=== PATIENT | female | born 1995 | race Caucasian/White ===

== ENCOUNTER 2020-10-05 16:02 | Inpatient (IN) | payer BC ==
[2020-10-05] MEDS ORDERED: OXYTOCIN 10 UNIT/ML 1 ML VIAL IM PRN (17:32)
[2020-10-05] MEDS ORDERED: CARBOPROST TROMETHAMINE 250 MCG/ML 1 ML AMP IM PRN (17:32)
[2020-10-05] MEDS ORDERED: METHYLERGONOVINE 0.2 MG/ML 1 ML AMP IM PRN (17:32)
[2020-10-05] MEDS ORDERED: LIDOCAINE 0.5% (PF) 5 MG/ML (50 ML SDV) SQ PRN (17:32)
[2020-10-05] MEDS ORDERED: AMPICILLIN 2,000 MG in SODIUM CHLORIDE 0.9% 100 ML IVPB STA (17:32)
[2020-10-05] MEDS ORDERED: TERBUTALINE 1 MG/ML VIAL SQ PRN (17:32)
[2020-10-05] MEDS ORDERED: BUTORPHANOL 1 MG/ML 1 ML VIAL IV PRN (17:34)
--- NOTE | 2020-10-05 17:40 | P.HPOB ---
History of Present Illness H&P Date: 10/05/20 Chief Complaint: IUP at 39-3/7 weeks, low amniotic fluid index. This is a yo 1 para 0 at 39-3/7 weeks that presents to labor and delivery after routine visit. Patient had an ultrasound for size less than dates EFW noted to be 25th percentile, amniotic fluid index was 8. Patient then underwent nonstress test which was reactive in nature. Patient did not good movement. Patient denies vaginal bleeding or loss of fluid. Patient has been receiving routine care which is been essentially uncomplicated. On bloodwork this patient has a blood type of A+, rubella status immune, RPR nonreactive, hepatitis B surface antigen negative, HIV negative, she did pass her 1 hour gestational diabetes screen, group beta strep is positive Review of Systems Constitutional: Denies chills, Denies fatigue, Denies fever Ears, nose, mouth and throat: Denies headache Cardiovascular: Reports leg edema Respiratory: Denies dyspnea Gastrointestinal: Denies constipation, Denies diarrhea, Denies nausea, Denies vomiting Genitourinary: Reports Past Medical History Past Medical History: No Reported History History of Any Multi-Drug Resistant Organisms: None Reported Past Surgical History: Cholecystectomy Additional Past Surgical History / Comment(s): 2012 Past Anesthesia/Blood Transfusion Reactions: No Reported Reaction Past Psychological History: No Psychological Hx Reported Smoking Status: Never smoker Past Alcohol Use History: None Reported Past Drug Use History: None Reported - Past Family History Father Family Medical History: Cancer Medications and Allergies Allergies Allergy/AdvReac Type Severity Reaction Status Date / Time Sulfa (Sulfonamide Allergy Rash/Hives Verified 10/05/20 16:56 Antibiotics) Exam Osteopathic Statement: *. No significant issues noted on an osteopathic structural exam other than those noted in the History and Physical/Consult. Vital Signs Temp Pulse Resp BP Pulse Ox 10/05/20 16:41 96.7 F L 94 16 118/60 98 Intake and Output 10/05/20 10/05/20 10/05/20 06:59 14:59 22:59 Other: Weight 81.193 kg Targeted physical exam is performed in this date and hospice physician a well-nourished well-developed female in no acute distress, breathing is noted to be nonlabored, heart has regular rate and rhythm, abdomen is gravid and appropriate for gestational age, on cervical exam she is 2/70/-1 station heart tones returned be category 1 and she is not marlena. Assessment and Plan (1) 39 weeks gestation of Current Visit: Yes Status: Acute Code(s): Z3A.39 - 39 WEEKS GESTATION OF SNOMED Code(s): 10600736 (2) Low amniotic fluid Current Visit: Yes Status: Acute Code(s): O41.00X0 - OLIGOHYDRAMNIOS, UNSP TRIMESTER, NOT APPLICABLE OR UNSP SNOMED Code(s): 69380817 (3) Positive GBS test Current Visit: Yes Status: Acute Code(s): B95.1 - STREPTOCOCCUS, GROUP B, CAUSING DISEASES CLASSD [facility] SNOMED Code(s): 226321377 Plan: 1 para 0 at 39 3/7 weeks that presents to labor and delivery for induction of labor secondary to borderline low amniotic fluid index. Patient is counseled on Pitocin induction of labor and states understanding. Patient is offered Stadol and epidural she will consider at the time.
[2020-10-05 17:43] LABS: Basophils % (A) 0 %; Eosinophils # (A) 0.2 k/uL (0-0.7); Eosinophils % (A) 2 %; HCT 36.7 % (34.0-46.0); HGB 13.1 gm/dL (11.4-16.0); Lymphocytes # (A) 1.6 k/uL (1.0-4.8); Lymphocytes % (A) 17 %; MCH 31.9 pg (25.0-35.0); MCHC 35.8 g/dL (31.0-37.0); MCV 89.1 fL (80.0-100.0); Mean Platelet Volume 7.7; Monocytes # (A) 0.5 k/uL (0-1.0); Monocytes % (A) 5 %; Neutrophils % (A) 75 %; Platelet Count 198 k/uL (150-450); RBC 4.12 m/uL (3.80-5.40); WBC 9.4 k/uL (3.8-10.6)
[2020-10-05] MEDS ORDERED: OXYTOCIN 30 UNITS/500 ML NS 30 UNIT in SALINE 1 500ML.BAG IV SCH ×2 (17:45→21:45)
[2020-10-05] MEDS: LACTATED RINGERS 1,000 ML IV SCH ×2 (17:45→21:34)
[2020-10-05] MEDS ORDERED: CITRIC ACID-SODIUM CITRATE 15 ML CUP PO ONE (20:50)
[2020-10-05] MEDS ORDERED: ONDANSETRON 4 MG/2 ML VIAL ONE (20:53)
[2020-10-05] MEDS ORDERED: MORPHINE SULFATE (PF) 0.3 MG/0.3 ML SYR ONE (20:53)
[2020-10-05] MEDS ORDERED: KETOROLAC 15 MG/ML 1 ML VIAL ONE (20:53)
[2020-10-05] MEDS ORDERED: DEXAMETHASONE SOD PHOSPHATE 10 MG/ML 1 ML VIAL ONE (20:53)
[2020-10-05] MEDS ORDERED: METOCLOPRAMIDE 5 MG/ML 2 ML VIAL IVP PRN (21:36)
[2020-10-05] MEDS ORDERED: SIMETHICONE 80 MG CHEWABLE PO PRN (21:36)
[2020-10-05] MEDS ORDERED: diphenhydrAMINE 50 MG/ML 1 ML VIAL IVP PRN ×2 (21:36)
[2020-10-05] MEDS ORDERED: ZOLPIDEM 5 MG TAB PO PRN (21:36)
[2020-10-05] MEDS ORDERED: NALOXONE 0.4 MG/ML 1 ML VIAL IV PRN (21:36)
[2020-10-05] MEDS ORDERED: diphenhydrAMINE 25 MG CAP PO PRN (21:36)
[2020-10-05] MEDS ORDERED: ONDANSETRON 4 MG/2 ML VIAL IVP PRN (21:36)
[2020-10-05] MEDS ORDERED: diphenhydrAMINE 50 MG CAP PO PRN (21:36)
--- NOTE | 2020-10-05 21:43 | P.OP ---
Date of Procedure: 10/05/20 Preoperative Diagnosis: IUP at 39-3/7 weeks, nonreassuring heart tones remote from delivery Postoperative Diagnosis: Same Procedure(s) Performed: Primary low transverse section Anesthesia: spinal Surgeon: Rosa Vicente Review Manager #1: Maryann Turner Estimated Blood Loss (ml): 316 IV fluids (ml): 1,000 Urine output (ml): 200 Pathology: other (Placenta) Condition: stable Disposition: observation Indications for Procedure: 35-year-old at 39-3/7 weeks that presented to labor and delivery for induction of labor earlier this evening. Patient was seen in the office for routine visit ultrasound was done for size less than dates. Ultrasound revealing estimated weight of 7 lbs. 1 oz. 25th percentile of note low amniotic fluid index was noted of 8 cm. NST was preformed in the office and noted be category 1 patient was sent to the hospital for induction of labor secondary to low amniotic fluid index. Patient was admitted Pitocin was begun. Patient did have an initial deceleration for 4 minutes that return to baseline with category 1 heart tones soon afterwards. Patient subsequently 2 hours later had an additional deceleration to the 70s for 4 minutes. heart tones did return to baseline of 120s but late decelerations had begun. Decision was made to take the patient for primary secondary to nonreassuring heart tones remote from delivery. Operative Findings: Normal uterus tubes and ovaries were appreciated. Viable male infant delivered at 2108, weight of 6 lbs. 1 oz. and Apgars of 8 and 9 at one and 5 minutes respectively. Description of Procedure: Patient was taken back to the operating suite where spinal anesthesia was found be adequate by the anesthesia department. She was then prepped and draped in the normal sterile fashion in the dorsal supine position. A Pfannenstiel skin incision was made the scalpel and carried through the underlying layer of fascia. The fascia was then incised in the midline and the incision was extended laterally. The superior aspect of the fascial incision was then grasped raman clamps, elevated and underlying rectus muscles dissected off sharply. Attention was then turned the inferior aspect of the fascial incision which was grasped raman clamps, elevated and underlying rectus muscles dissected off sharply once again. The rectus muscles were in the midline the peritoneum was identified and entered. The bladder blade was then introduced into the abdominal cavity. The vesicouterine peritoneum was identified and a bl adder flap was created using sharp and blunt dissection. Hysterotomy incision was then made with the scalpel and the was delivered in a vertex presentation the umbo cord was doubly clamped and cut and the infant was handed off to awaiting RN spontaneous cry was noted at . The placenta was then delivered manually and the uterus cleared of all clots and debris. Uterus was delivered from the abdomen. Hysterotomy incision was then closed with 0 Vicryl in a running locked fashion a second imbricating suture was performed. The pelvis was then closely irrigated the hysterotomy incision was found to be hemostatic and the uterus was returned the abdomen. The gutters were cleared of all clots and debris. The hysterotomy inspected incision was inspected found to be hemostatic Surgicel was placed over the incision. The rectus muscles were loosely reapproximated. The fascia was closed with 0 Vicryl in a running fashion from one lateral edge the midline and the other lateral edge the midline. Subcu tissue was then irrigated found to be hemostatic and closed with 3-0 Vicryl in a running fashion. The skin was then closed with 4-0 Vicryl in a subcuticular fashion. Steri-Strips and sterile dressings were applied as needed. All counts were noted to be correct 2. Patient and tolerated delivery well and are resting comfortably.
[2020-10-05] MEDS ORDERED: AMPICILLIN 1,000 MG in SODIUM CHLORIDE 0.9% 50 ML IVPB SCH (22:00)
[2020-10-05] MEDS: ACETAMINOPHEN IV (For NPO) 1,000 MG in EMPTY BAG 1 BAG IVPB SCH (22:28)
[2020-10-06] MEDS: ACETAMINOPHEN TAB 500 MG TAB PO SCH ×3 (02:45→20:14)
[2020-10-06] MEDS: LACTATED RINGERS 1,000 ML IV SCH ×2 (02:46→05:13)
[2020-10-06] MEDS: IBUPROFEN 600 MG TAB PO SCH ×3 (04:53→23:45)
[2020-10-06] MEDS: IBUPROFEN IV 800 MG in SODIUM CHLORIDE 0.9% 250 ML IV SCH (05:13)
[2020-10-06 06:14] LABS: Basophils % (A) 0 %; Eosinophils % (A) 0 %; HCT 31.4 % (34.0-46.0); HGB 11.7 gm/dL (11.4-16.0); Lymphocytes % (A) 7 %; MCH 34.1 pg (25.0-35.0); MCHC 37.1 g/dL (31.0-37.0); MCV 91.8 fL (80.0-100.0); Mean Platelet Volume 7.4; Monocytes # (A) 0.4 k/uL (0-1.0); Monocytes % (A) 3 %; Neutrophils # (A) 12.9 k/uL (1.3-7.7); Neutrophils % (A) 90 %; Platelet Count 165 k/uL (150-450); RBC 3.43 m/uL (3.80-5.40); RDW 12.8 % (11.5-15.5); WBC 14.4 k/uL (3.8-10.6)
[2020-10-06] MEDS: SENNOSIDES-DOCUSATE SODIUM 1 EACH TAB PO SCH ×2 (07:47→20:13)
--- NOTE | 2020-10-06 07:51 | P.PN ---
Progress Note - Text Progress Note Date: 10/06/20 (691) Anesthesia Postop day 1 Subjective: Status Post section with Duramorph. Patient seen and examined. Doing well without complaint. VAS 3 out of 10. No nausea or vomiting. Mild pruritus tolerable. All resolved this morning. Afebrile. Gross lower extremity strength intact. . Without apparent anesthetic complications. Objective: Vital signs reviewed Heart: Regular Rate Lungs: Good chest excursion Abdomen: Appears nondistended Assessment: Status post with Duramorph postop day 1 Plan: Continue current care with your medical management.
--- NOTE | 2020-10-06 08:33 | P.PNOBGPC ---
Subjective - Subjective Principal diagnosis: POD 1 LTCS NRFHTs Interval history: Patient did well overnight. She is ambulate without difficulty, Kline was discontinued and we are awaiting a spontaneous void. Her lochia is minimal. She is breast-feeding without difficulty. She states her pain is well- controlled. Patient reports: Reports appetite normal, Reports voiding normally, Reports pain well controlled, Reports ambulating normally : doing well Objective - Vital Signs Latest vital signs: Vital Signs Temp Pulse Resp BP Pulse Ox 10/06/20 08:00 97.5 F L 77 16 111/61 99 10/06/20 03:20 97.7 F 86 16 109/70 98 10/06/20 00:04 96.6 F L 78 16 99/55 98 10/05/20 23:49 90 16 107/63 99 10/05/20 23:16 83 16 120/57 99 10/05/20 22:34 97.3 F L 95 16 130/55 98 10/05/20 22:19 77 16 80/51 98 10/05/20 22:04 72 16 95/50 98 10/05/20 21:49 79 16 85/59 98 10/05/20 21:33 97.9 F 90 16 91/53 100 10/05/20 16:41 96.7 F L 94 16 118/60 98 Intake and Output 10/05/20 10/06/20 10/06/20 22:59 06:59 14:59 Output Total 300 1332 Balance -300 -1332 Output: Urine 300 700 Uretheral (Kline) 300 Estimated Blood Loss 632 Other: Voiding Method Indwelling Catheter Indwelling Catheter # Voids 1 1 Weight 81.193 kg - Exam Extremities: Present: normal, edema Abdomen: Present: normal appearance Incision: Present: normal, intact Uterus: Present: normal, firm - Labs Labs: Abnormal Lab Results - Last 24 Hours (Table) 10/06/20 Range/Units 05:40 WBC 14.4 H (3.8-10.6) k/uL RBC 3.43 L (3.80-5.40) m/uL Hct 31.4 L (34.0-46.0) % MCHC 37.1 H (31.0-37.0) g/dL Neutrophils # 12.9 H (1.3-7.7) k/uL Assessment and Plan (1) 39 weeks gestation of Current Visit: Yes Status: Acute Code(s): Z3A.39 - 39 WEEKS GESTATION OF SNOMED Code(s): 13665946 (2) Low amniotic fluid Current Visit: Yes Status: Acute Code(s): O41.00X0 - OLIGOHYDRAMNIOS, UNSP TRIMESTER, NOT APPLICABLE OR UNSP SNOMED Code(s): 08238609 (3) Positive GBS test Current Visit: Yes Status: Acute Code(s): B95.1 - STREPTOCOCCUS, GROUP B, CAUSING DISEASES CLASSD [facility] SNOMED Code(s): 787142140 (4) S/P section Current Visit: Yes Status: Acute Code(s): Z98.891 - HISTORY OF UTERINE SCAR FROM PREVIOUS SURGERY SNOMED Code(s): 074613495 (5) Non-reassuring heart rate with late deceleration Current Visit: Yes Status: Acute Code(s): O36.8390 - MATERN CARE FOR ABNLT FETL HRT RATE OR RHYM, UNSP TRI, UNSP SNOMED Code(s): 282678871 Plan: 25-year-old G1 now P1 status post primary performed for nonreassuring heart tones. Patient is doing well postoperatively. Awaiting spontaneous void. Encourage increased ambulation today and anticipate discharge home tomorrow.
[2020-10-06] MEDS: ACETAMINOPHEN IV (For NPO) 1,000 MG in EMPTY BAG 1 BAG IVPB SCH (08:43)
[2020-10-06 20:10] VITALS: RESP 16
[2020-10-07 00:04] VITALS: PULSE 95
[2020-10-07] MEDS: ACETAMINOPHEN TAB 500 MG TAB PO SCH ×2 (03:25→09:08)
[2020-10-07] MEDS: IBUPROFEN IV 800 MG in SODIUM CHLORIDE 0.9% 250 ML IV SCH (04:44)
[2020-10-07] MEDS: LACTATED RINGERS 1,000 ML IV SCH ×2 (04:45)
[2020-10-07] MEDS: IBUPROFEN 600 MG TAB PO SCH ×2 (04:46→06:09)
[2020-10-07] MEDS: SENNOSIDES-DOCUSATE SODIUM 1 EACH TAB PO SCH (07:48)
--- NOTE | 2020-10-07 09:04 | P.DS ---
Providers Date of admission: 10/05/20 16:21 Expected date of discharge: 10/07/20 Attending physician: Rosa Vicente Primary care physician: Jose Eduardo Tirado MD - Discharge Diagnosis(es) (1) 39 weeks gestation of Current Visit: Yes Status: Acute (2) Low amniotic fluid Current Visit: Yes Status: Acute (3) Positive GBS test Current Visit: Yes Status: Acute (4) S/P section Current Visit: Yes Status: Acute (5) Non-reassuring heart rate with late deceleration Current Visit: Yes Status: Acute Hospital Course: This is a 25-year-old 1 now para 1 that presented to labor and delivery for induction of labor secondary to low amniotic fluid index an estimated weight less than 25th percentile at her routine visit in the office. Patient was noted to be 39-3/7 weeks with an estimated due date of 10/09. Patient was noting good movement had reassuring testing. NST in the office was noted to be reactive are category 1. Patient was admitted and induction of labor was begun with Pitocin per hospital protocol. Patient was noted to have a deceleration for 4 minutes with good return to baseline upon ambulation. Patient progressed and had another deceleration down to 70 544 minutes. Decision at that point was made to proceed with primary secondary to nonreassuring status. Patient was taken back to the operating suite liveborn male was delivered at 2108, weight of 6 lbs. 1 oz. with Apgars of 8 and 9 at one and 5 minutes respect daily. Patient's course has been uneventful. On this day #2 she is ambulating and voiding without difficulty. She is breast-feeding without difficulty. She states her pain is well-controlled with oral pain medication. She is tolerating a regular diet without nausea or vomiting and she states her lochia is minimal. Patient Condition at Discharge: Good Plan - Discharge Summary Follow up Appointment(s)/Referral(s): Rosa Vicente DO [Doctor of Osteopathic Medicine] - 2 Weeks Patient Instructions/Handouts: (DC), (GEN) Discharge Disposition: HOME SELF-CARE
[2020-10-07 09:36] VITALS: BP 95/60; TEMP 97.8
== END 2020-10-07 10:15 | disposition home or self-care (01) | DRG 788 ==
LOC: 4FBP 16:21
PROVIDERS: ADMIT Obstetrics & Gynecology Obstetrics; ATTEND Obstetrics & Gynecology Obstetrics
PROC: 10D00Z1 Extraction of Products of Conception, Low, Open Approach (ICD-10-PCS; principal; 2020-10-05 21:00)
DX: O41.03X0 Oligohydramnios, third trimester, not applicable or unspecified (principal); O76 Abnormality in fetal heart rate and rhythm complicating labor and delivery; L29.9 Pruritus, unspecified; O99.824 Streptococcus B carrier state complicating childbirth; Z37.0 Single live birth; Z3A.39 39 weeks gestation of pregnancy
CPT/HCPCS: 85025; 86850; 86900; 86901; 88307

== ENCOUNTER → 2021-12-12 | Outpatient (CLI) | payer BC ==
--- NOTE | 2021-12-12 14:00 | MR ---
EXAMINATION TYPE: MR brain wo/w con DATE OF EXAM: 12/12/2021 COMPARISON: None HISTORY: PARESTHESIA OF TONGUE TECHNIQUE: Multiplanar, multisequence images of the brain and brainstem is performed without and with IV contras t, utilizing 6 mL intravenous Gadavist . FINDINGS: Diffusion weighted images demonstrate no evidence of a recent infarct or other diffusion ab normality. There a few scattered focal subcutaneous 5 mm areas of abnormal signal within the right f rontal and parietal white matter. 2 small to characterize. Area of abnormal signal on FLAIR sequences within the right kush is most likely artifactual. The ventricular system and cisternal spaces are n ormal in size and appearance. The brain volume is age appropriate. Midline structures demonstrate normal morphology. The craniocervical junction appears within normal limits. Post contrast images demonstrate no abnormal enhancement. The dural venous sinuses appear pa tent. The visualized sinuses are clear and the globes are intact. IMPRESSION: Minimal nonspecific white matter changes can be seen with migraine headaches, hypertension. Demyelina ting process and remote microvascular ischemia not entirely excluded correlate clinically.
== END | disposition home or self-care (01) ==
LOC: RADMRIMAIN 11:45
PROVIDERS: ATTEND Internal Medicine
DX: R44.8 Other symptoms and signs involving general sensations and perceptions (principal); G93.89 Other specified disorders of brain
CPT/HCPCS: 70553; A9585

== ENCOUNTER 2022-09-21 05:12 | Outpatient (CLI) | payer BC ==
[2022-09-21 05:46] LABS: Appearance,Urine Clear (Clear); Bilirubin,Urine Negative (Negative); Blood,Urine Negative (Negative); Color,Urine Light Yellow; Glucose,Urine (UA) Negative (Negative); Ketones,Urine Negative (Negative); Leukocyte Esterase,Urine Negative (Negative); Nitrite,Urine Negative (Negative); PH, Urine 6.5 (5.0-8.0); Protein,Urine Negative (Negative); Specific Gravity,Urine 1.009 (1.001-1.035); Urobilinogen,Urine <2.0 mg/dL (<2.0)
[2022-09-21 06:19] VITALS: BP 114/52; PULSE 86; RESP 16; TEMP 97.2
--- NOTE | 2022-10-02 14:09 | P.MSEPDOC ---
Presenting Problems - Arrival Data Date of Arrival on Unit: 09/21/22 Time of Arrival on Unit: 05:12 Mode of Transport: Ambulatory - Complaint OB-Reason for Admission/Chief Complaint: Pain Medical History - Information : 3 Para: 1 Term: 1 Abortions: Spontaneous or Elective: 1 Number of Living Children: 1 - Gestational Age Gestational Age by ASHWINI (wks/days): 35 Weeks and 6 Days - History Complications: GBS+ Review of Systems - Review of Systems Constitutional: No problems Breast: No problems ENT: No problems Cardiovascular: No problems Respiratory: No problems Gastrointestinal: No problems Genitourinary: No problems Musculoskeletal: No problems Neurological: No problems Skin: No problems Vital Signs - Temperature Temperature: 97.2 F Temperature Source: Temporal Artery Scan - Pulse Pulse Oximetery Pulse Rate: 86 Pulse Assessment Method: Auscultation - Respirations Respiratory Rate: 16 Oxygen Delivery Method: Room Air O2 Sat by Pulse Oximetry: 98 - Blood Pressure Right Arm Blood Pressure: 114/52 Blood Pressure Mean: 72 Blood Pressure Source: Automatic Cuff Medical Screen Scoring - Cervical Exam Dilation (cm): 0 Membranes: Intact - Uterine Contractions Frequency From (mins): 2 Frequency To (mins): 5 Duration From (seconds): 40 Duration To (seconds): 60 Intensity: Absent - Assessment - Baby A Heart Rate - NICHD Category: Category I (Normal) NST: Reactive Physician Notification - Physician Notified Physician Notified Date: 09/21/22 Physician Notified Time: 00:00 Physician: Swathi Matos New Order Received: Yes - Notification Comment Comment: RN spoke Dr. Matos via telephone Dr. Matos aware of cervical exam,. urine labs, Cat1, contraction pattern and patient is not feeling contractions.Dr. Matos is discharging patient to keep appt with Dr. Vicente this. . Patient aware of sign of when to call OB or return to triage. Patient. ambulated out of triage with significant other. Maternal Triage Index - Urgent/Priority 2 Urgent Priority 2: Yes Provider Notified: Swathi Matos Provider Notified Time: 05:52 Criteria Met for Priority 2: pt c/o of cramping and back pain that started about 0150. Disposition - Disposition OB Disposition: Admit Discharge Date: 09/21/22 Discharge Time: 05:56 I agree with the RN Medical Screening Exam: Yes Physician's MSE Comment: I have neither seen nor examined the patient Case reviewed; plan agreed upon as documented in EMR&OBIX.: Yes Diagnosis: RELATED CONDITIONS, UNSPECIFIED, THIRD TRIMESTER
== END 2022-09-21 05:56 | disposition home or self-care (01) ==
LOC: FBPOP 05:12
PROVIDERS: ATTEND Obstetrics & Gynecology
DX: O26.893 Other specified pregnancy related conditions, third trimester (principal); Z3A.35 35 weeks gestation of pregnancy; A49.1 Streptococcal infection, unspecified site; Z88.2 Allergy status to sulfonamides
CPT/HCPCS: 59025; 81003; 99213

== ENCOUNTER 2022-10-16 09:00 | Outpatient (CLI) | payer BC ==
[2022-10-16 10:38] VITALS: BP 118/71; PULSE 75; RESP 16; TEMP 97.3
--- NOTE | 2022-11-08 19:12 | P.MSEPDOC ---
Presenting Problems - Arrival Data Date of Arrival on Unit: 10/16/22 Time of Arrival on Unit: 09:00 Mode of Transport: Ambulatory - Complaint OB-Reason for Admission/Chief Complaint: Vaginal Bleeding Comment: pt presents to triage for some vaginal bleedin when wiping with toilet paper this am Medical History - Information : 3 Para: 1 Term: 1 : 0 Abortions: Spontaneous or Elective: 1 Number of Living Children: 1 - Gestational Age Gestational Age by ASHWINI (wks/days): 39 Weeks and 3 Days - History Complications: Prior Comment: pt wants to Review of Systems - Review of Systems Constitutional: No problems Breast: No problems ENT: No problems Cardiovascular: No problems Respiratory: No problems Gastrointestinal: No problems Genitourinary: No problems Musculoskeletal: No problems Neurological: No problems Skin: No problems Vital Signs - Temperature Temperature: 97.3 F Temperature Source: Temporal Artery Scan - Pulse Right Brachial Pulse Rate: 75 Pulse Assessment Method: Automatic Cuff - Respirations Respiratory Rate: 16 Oxygen Delivery Method: Room Air O2 Sat by Pulse Oximetry: 98 - Blood Pressure Right Arm Blood Pressure: 118/71 Blood Pressure Mean: 86 Blood Pressure Source: Automatic Cuff Medical Screen Scoring - Cervical Exam Dilation (cm): 1 Effacement (%): 50 Station: -3 Membranes: Intact - Uterine Contractions Intensity: Mild Resting: Soft to palpation - Assessment - Baby A Baseline FHR: 120 Heart Rate - NICHD Category: Category I (Normal) NST: Reactive Physician Notification - Physician Notified Physician Notified Date: 10/16/22 Physician Notified Time: 09:57 Physician: Rosa Vicente New Order Received: Yes - Notification Comment Comment: pt wants to , cervical exam /-3, reactive nst, irregular contrations, discharged home, next appt in office 10/18 Maternal Triage Index - Maternal Triage Index Presenting for scheduled procedure w/no complaint: No - Stat/Priority 1 Stat Priority 1: No - Urgent/Priority 2 Urgent Priority 2: No - Prompt/Priority 3 Prompt Priority 3: Yes Criteria Met for Priority 3: pt presents to triage for some vaginal bleedin when wiping with toilet paper this am Disposition - Disposition OB Disposition: Triage, Discharge to home, Written follow up instructions reviewed Discharge Date: 10/16/22 Discharge Time: 10:15 I agree with the RN Medical Screening Exam: Yes Case reviewed; plan agreed upon as documented in EMR&OBIX.: Yes Diagnosis: RELATED CONDITIONS, UNSPECIFIED, THIRD TRIMESTER
== END 2022-10-16 10:15 | disposition home or self-care (01) ==
LOC: FBPOP 09:00
PROVIDERS: ATTEND Obstetrics & Gynecology Obstetrics
DX: O26.893 Other specified pregnancy related conditions, third trimester (principal); Z3A.39 39 weeks gestation of pregnancy; O34.219 Maternal care for unspecified type scar from previous cesarean delivery; N85.8 Other specified noninflammatory disorders of uterus; Z88.2 Allergy status to sulfonamides
CPT/HCPCS: 59025; 99213

== ENCOUNTER 2022-10-18 16:12 | Inpatient (IN) | payer BC ==
[2022-10-18] MEDS ORDERED: METHYLERGONOVINE 0.2 MG/ML 1 ML AMP IM PRN (16:25)
[2022-10-18] MEDS ORDERED: CITRIC ACID-SODIUM CITRATE 15 ML CUP PO ONE (16:25)
[2022-10-18] MEDS ORDERED: TRANEXAMIC ACID IN NACL,ISO-OS 1,000 MG in EMPTY BAG 1 BAG IV PRN (16:25)
[2022-10-18] MEDS ORDERED: OXYTOCIN 10 UNIT/ML 1 ML VIAL IM PRN (16:25)
[2022-10-18] MEDS ORDERED: miSOPROStoL 200 MCG TAB PO PRN (16:25)
[2022-10-18] MEDS ORDERED: CARBOPROST TROMETHAMINE 250 MCG/ML 1 ML AMP IM PRN (16:25)
[2022-10-18] MEDS ORDERED: OXYTOCIN 30 UNITS/500 ML NS 30 UNIT in SALINE 1 500ML.BAG IV SCH (16:30)
[2022-10-18] MEDS: LACTATED RINGERS 1,000 ML IV SCH ×3 (16:37→20:30)
[2022-10-18 16:52] LABS: Basophils % (A) 0 %; Eosinophils # (A) 0.2 k/uL (0-0.7); Eosinophils % (A) 2 %; HCT 35.4 % (34.0-46.0); Lymphocytes % (A) 20 %; MCH 28.2 pg (25.0-35.0); Mean Platelet Volume 9.2; Monocytes # (A) 0.6 k/uL (0-1.0); Monocytes % (A) 6 %; Neutrophils # (A) 7.1 k/uL (1.3-7.7); Neutrophils % (A) 71 %; Platelet Count 190 k/uL (150-450); RBC 4.26 m/uL (3.80-5.40); RDW 13.1 % (11.5-15.5)
[2022-10-18] MEDS ORDERED: ONDANSETRON 4 MG/2 ML VIAL ONE (18:35)
[2022-10-18] MEDS ORDERED: MORPHINE SULFATE (PF) 0.3 MG/0.3 ML SYR ONE (18:35)
[2022-10-18] MEDS ORDERED: DEXAMETHASONE SOD PHOSPHATE 4 MG/ML 1 ML VIAL ONE (18:35)
[2022-10-18] MEDS ORDERED: HYDROmorphone (PF) 1 MG/ML ONE (18:35)
[2022-10-18] MEDS ORDERED: KETOROLAC 15 MG/ML 1 ML VIAL ONE (18:35)
[2022-10-18] MEDS ORDERED: PHENYLEPHRINE-0.9% NACL SYG 1,000 MCG/10 ML SYRINGE ONE (18:35)
[2022-10-18] MEDS ORDERED: OXYTOCIN 30 UNITS/500 ML NS BAG IV ONE (18:35)
[2022-10-18] MEDS ORDERED: OXYTOCIN 10 UNIT/ML 1 ML VIAL ONE (18:35)
[2022-10-18] MEDS ORDERED: NALOXONE 0.4 MG/ML 1 ML VIAL IV PRN ×2 (19:21→19:23)
[2022-10-18] MEDS ORDERED: METOCLOPRAMIDE 5 MG/ML 2 ML VIAL IVP PRN (19:21)
[2022-10-18] MEDS ORDERED: diphenhydrAMINE 50 MG CAP PO PRN (19:21)
[2022-10-18] MEDS ORDERED: ZOLPIDEM 5 MG TAB PO PRN (19:21)
[2022-10-18] MEDS ORDERED: ONDANSETRON 4 MG/2 ML VIAL IVP PRN ×2 (19:21→19:23)
[2022-10-18] MEDS ORDERED: diphenhydrAMINE 25 MG CAP PO PRN (19:21)
[2022-10-18] MEDS ORDERED: diphenhydrAMINE 50 MG/ML 1 ML VIAL IVP PRN ×3 (19:21→19:23)
[2022-10-18] MEDS ORDERED: MORPHINE SULFATE 2 MG/ML SYRINGE IVP PRN (19:23)
--- NOTE | 2022-10-18 19:30 | P.OP ---
Date of Procedure: 10/18/22 Preoperative Diagnosis: IUP at 39 and 5, history of 1, low amniotic fluid index Postoperative Diagnosis: Same Procedure(s) Performed: Repeat section Anesthesia: spinal Surgeon: Rosa Vicente Legal Paraprofessional #1: Sascha Lozano Estimated Blood Loss (ml): 523 IV fluids (ml): 800 Urine output (ml): 300 Pathology: other (Placenta) Condition: stable Disposition: observation Indications for Procedure: 27-year-old 011 that was seen in the office today for routine visit. Ultrasound was performed for estimated weight and amniotic fluid index. Patient has a history of a primary for nonreassuring tones and low amniotic fluid index. Patient had an CELINA noted to be low at 9. Patient was counseled on delivery options. On cervical exam her cervix is noted to be unfavorable. Patient elected repeat section. Operative Findings: Viable female delivered at 1856, weight of 5 lbs. 12 oz., Apgars of 9 and 9 at one and 5 minutes respectively. Of note the lower uterine segment was noted to be significantly thin on hysterotomy incision. Thin meconium-stained fluid was appreciated. Normal ovaries bilaterally. Description of Procedure: Patient was taken back to the operating suite where spinal anesthesia was found be adequate. She was prepped and draped in the normal sterile fashion in the dorsal lithotomy position. A Pfannenstiel skin incision was made with the scalpel and carried through the underlying layer of fascia. The fascia was incised the midline and extended laterally. The superior aspect of fascial incision was then grasped raman clamps, elevated and underlying rectus muscles dissected off sharply. The inferior aspect of the fascial incision was then grasped raman clamps, elevated and the underlying rectus muscles dissected off sharply once again. The rectus muscles were then in the midline the peritoneum was identified and entered. This incision was then extended superiorly and inferiorly with good visualization the bladder. The bladder blade was then inserted and the vesicouterine peritoneum was identified. A bladder flap was then created using sharp and blunt dissection. The bladder blade was then reinserted into the pelvis. A scalpel was used to perform hysterotomy incision and thin meconium-stained fluid was appreciated. The lower uterine segment was noted to be thin in nature. The infant was encountered presentation and delivered without difficulty. The umbilical cord was doubly clamped and cut, and the was handed to awaiting RN. A spontaneous cry was noted at . The placenta was delivered manually and the uterus was exteriorized and cleared of all clots and debris. Uterine incision was closed with 0 Vicryl in a running locked fashion. A second imbricating suture was performed. The hysterotomy incision was inspected and found to be hemostatic. The uterus was returned the abdomen. The gutters were cleared of all clots and debris. The hysterotomy incision was inspected and hemostasis was appreciated. The peritoneum was then loosely reapproximated, the rectus muscles were inspected and any points of bleeding were made hemostatic with the Bovie. The fascia was then closed with 0 Vicryl in a running fashion from one lateral edge the midline and the other lateral edge the midline. Subcu tissue was irrigated and any points of bleeding were made hemostatic with the Bovie. The subcu tissue was then closed with 3-0 Vicryl in a running fashion. Skin was then closed with 4-0 Vicryl in a subcuticular fashion. Steri-Strips and sterile dressings were applied. All counts were correct 2 at the end of the procedure patient and infant tolerated delivery well and are resting comfortably.
--- NOTE | 2022-10-18 19:31 | P.HPOB ---
History of Present Illness H&P Date: 10/18/22 Chief Complaint: IUP at 39-5/7 weeks, low CELINA, history of 1 This is a 27-year-old at 39-5/7 weeks that presents to labor and delivery after being seen for a routine visit. Patient had an ultrasound giving her upcoming due date in mid fluid index was noted to be slightly low at 9. Estimated weight was 24th percentile. Patient has noted good movement. Patient had a reassuring category 1 NST. Patient has noted good movement, denies contractions. Patient has been receiving routine care with myself that has been essentially uncomplicated. Patient has a prior history of a primary for nonreassuring heart tones and low amniotic fluid index. Patient did desire TOLAC until today when she requested repeat section. Patient's cervix was found to be unfavorable after questions were answered patient agreed with repeat section. Review of Systems Constitutional: Denies chills, Denies fatigue, Denies fever Ears, nose, mouth and throat: Denies headache Cardiovascular: Reports leg edema Respiratory: Denies dyspnea Gastrointestinal: Denies constipation, Denies diarrhea, Denies nausea, Denies vomiting Genitourinary: Reports Past Medical History Past Medical History: No Reported History History of Any Multi-Drug Resistant Organisms: None Reported Past Surgical History: Cholecystectomy Additional Past Surgical History / Comment(s): 2012 Past Anesthesia/Blood Transfusion Reactions: No Reported Reaction Smoking Status: Never smoker - Past Family History Father Family Medical History: Cancer Medications and Allergies Home Medications Medication Instructions Recorded Confirmed Type busPIRone HCl [Buspar] 1 tab PO DAILY 09/21/22 10/16/22 History busPIRone HCl [Buspar] 1 tab PO HS 09/21/22 10/16/22 History Aspirin [Children's Aspirin] 81 mg PO DAILY 10/16/22 10/16/22 History Vit No.179/Iron/Folic 1 tab PO DAILY 10/16/22 10/16/22 History [ Tablet] Allergies Allergy/AdvReac Type Severity Reaction Status Date / Time Sulfa (Sulfonamide Allergy Rash/Hives Verified 10/16/22 09:19 Antibiotics) Exam Osteopathic Statement: *. No significant issues noted on an osteopathic structural exam other than those noted in the History and Physical/Consult. Targeted physical exam is performed in this date and transferrer a well-nourished well-developed female in no acute distress, breathing is nonlabored, heart has a regular rate and rhythm, abdomen is gravid for gestational age, heart tones are noted to be category 1 from an NST in the office, on cervical exam she is 1/50/-2 firm and posterior. Vertex presentation Assessment and Plan (1) Term Current Visit: Yes Status: Acute Code(s): Z34.90 - ENCNTR FOR SUPRVSN OF NORMAL , UNSP, UNSP TRIMESTER SNOMED Code(s): 03875946 (2) H/O section Current Visit: Yes Status: Acute Code(s): Z98.891 - HISTORY OF UTERINE SCAR FROM PREVIOUS SURGERY SNOMED Code(s): 906072034 (3) Low amniotic fluid Current Visit: No Status: Acute Code(s): O41.00X0 - OLIGOHYDRAMNIOS, UNSP TRIMESTER, NOT APPLICABLE OR UNSP SNOMED Code(s): 49904289 (4) Positive GBS test Current Visit: No Status: Acute Code(s): B95.1 - STREPTOCOCCUS, GROUP B, CAUSING DISEASES CLASSD [facility] SNOMED Code(s): 108713965 Plan: 27-year-old at 39-5/7 weeks presents for repeat section. Patient was seen for routine visit for low CELINA was appreciated on ultrasound. Patient was counseled on options for delivery. Given patient's unfavorable cervix repeat section was discussed. Patient agreed with this plan of care. All questions are answered and patient was in agreement a plan. We'll proceed with repeat section.
[2022-10-18] MEDS: SENNOSIDES-DOCUSATE SODIUM 1 EACH TAB PO SCH (21:00)
[2022-10-18] MEDS: busPIRone HCl 5 MG TAB PO SCH (21:00)
[2022-10-18] MEDS: ACETAMINOPHEN TAB 500 MG TAB PO SCH (22:47)
[2022-10-18] MEDS: IBUPROFEN IV 800 MG in SODIUM CHLORIDE 0.9% 250 ML IV SCH (23:29)
[2022-10-19] MEDS ORDERED: ACETAMINOPHEN IV (For NPO) 1,000 MG in EMPTY BAG 1 BAG IVPB SCH
[2022-10-19] MEDS: IBUPROFEN IV 800 MG in SODIUM CHLORIDE 0.9% 250 ML IV SCH (02:43)
[2022-10-19] MEDS: IBUPROFEN 600 MG TAB PO SCH ×4 (02:43→19:38)
[2022-10-19] MEDS: ACETAMINOPHEN TAB 500 MG TAB PO SCH ×4 (03:08→23:45)
[2022-10-19] MEDS: LACTATED RINGERS 1,000 ML IV SCH ×2 (03:51→22:25)
[2022-10-19] MEDS: SENNOSIDES-DOCUSATE SODIUM 1 EACH TAB PO SCH ×2 (07:56→19:39)
[2022-10-19 08:17] LABS: Basophils % (A) 0 %; Eosinophils % (A) 0 %; HCT 33.4 % (34.0-46.0); HGB 11.2 gm/dL (11.4-16.0); Lymphocytes # (A) 1.4 k/uL (1.0-4.8); Lymphocytes % (A) 9 %; MCHC 33.4 g/dL (31.0-37.0); MCV 83.9 fL (80.0-100.0); Mean Platelet Volume 8.6; Monocytes # (A) 0.5 k/uL (0-1.0); Monocytes % (A) 3 %; Neutrophils # (A) 13.2 k/uL (1.3-7.7); Neutrophils % (A) 87 %; Platelet Count 185 k/uL (150-450); RBC 3.98 m/uL (3.80-5.40); RDW 13.1 % (11.5-15.5); WBC 15.3 k/uL (3.8-10.6)
--- NOTE | 2022-10-19 08:22 | P.PN ---
Progress Note - Text Date: 10/19/2022 Time: 07:18 The patient is status post section Vital signs stable VAS: 0-10 Patient has no complaints of pain. The patient incurred some minimal itching yesterday, this itching is now subsiding. Pain meds to be managed by service.
--- NOTE | 2022-10-19 09:09 | P.PNOBGPC ---
Subjective - Subjective Principal diagnosis: Postop day 1, repeat section Interval history: Patient is doing well this morning. 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 She is tolerating a regular diet without nausea or vomiting. She states her pain is well-controlled. She is breast-feeding without difficulty. Patient reports: Reports appetite normal, Reports voiding normally, Reports pain well controlled, Reports ambulating normally [place]: doing well, nursing well Objective - Vital Signs Latest vital signs: Vital Signs Temp Pulse Resp BP Pulse Ox 10/19/22 03:15 98.1 F 68 12 105/61 98 10/19/22 00:00 97.6 F 81 16 111/73 96 10/18/22 21:31 96.4 F L 90 16 104/55 98 10/18/22 20:59 96.6 F L 76 16 106/56 97 10/18/22 20:31 86 16 109/52 98 10/18/22 20:14 78 16 104/53 99 10/18/22 20:01 79 16 112/57 99 10/18/22 19:46 72 16 113/56 98 10/18/22 19:31 97.0 F L 72 16 109/59 99 10/18/22 19:23 97.0 F L 77 16 109/59 100 10/18/22 16:32 97.4 F L 73 16 120/65 99 Intake and Output 10/18/22 10/19/22 10/19/22 22:59 06:59 14:59 Intake Total 1000 Output Total 660 600 Balance -660 400 Intake: IV 1000 Invasive Line 1 1000 Output: Urine 600 Uretheral (Kline) 300 Estimated Blood Loss 523 Output, Quantitative 137 Blood Loss Other: Voiding Method Indwelling Catheter # Voids 1 Weight 83.461 kg - Exam Extremities: Present: normal, edema Abdomen: Present: normal appearance, soft Incision: Present: normal, dry, intact, dressed Uterus: Present: normal, firm - Labs Labs: Abnormal Lab Results - Last 24 Hours (Table) 10/19/22 Range/Units 08:01 WBC 15.3 H (3.8-10.6) k/uL Hgb 11.2 L (11.4-16.0) gm/dL Hct 33.4 L (34.0-46.0) % Neutrophils # 13.2 H (1.3-7.7) k/uL Assessment and Plan (1) Term Current Visit: Yes Status: Acute Code(s): Z34.90 - ENCNTR FOR SUPRVSN OF NORMAL , UNSP, UNSP TRIMESTER SNOMED Code(s): 41243514 (2) H/O section Current Visit: Yes Status: Acute Code(s): Z98.891 - HISTORY OF UTERINE SCAR FROM PREVIOUS SURGERY SNOMED Code(s): 344420328 (3) Low amniotic fluid Current Visit: No Status: Acute Code(s): O41.00X0 - OLIGOHYDRAMNIOS, UNSP TRIMESTER, NOT APPLICABLE OR UNSP SNOMED Code(s): 58189279 (4) Positive GBS test Current Visit: No Status: Acute Code(s): B95.1 - STREPTOCOCCUS, GROUP B, CAUSING DISEASES CLASSD ELSR SNOMED Code(s): 914181614 Plan: Patient is doing well postoperatively. Encouraged increased ambulation, diet is advanced this morning. Anticipate discharge home tomorrow
[2022-10-19] MEDS: busPIRone HCl 10 MG TAB PO SCH (09:11)
[2022-10-19] MEDS: PRENATAL VIT-IRON-FOLIC ACID 1 EACH TABLET PO SCH (09:11)
[2022-10-19] MEDS: SIMETHICONE 80 MG CHEWABLE PO PRN (15:18)
[2022-10-19] MEDS: busPIRone HCl 5 MG TAB PO SCH (22:24)
[2022-10-20] MEDS: SIMETHICONE 80 MG CHEWABLE PO PRN (01:52)
[2022-10-20] MEDS: IBUPROFEN 600 MG TAB PO SCH ×2 (01:54→07:50)
[2022-10-20] MEDS: ACETAMINOPHEN TAB 500 MG TAB PO SCH (04:47)
[2022-10-20] MEDS: PRENATAL VIT-IRON-FOLIC ACID 1 EACH TABLET PO SCH (07:49)
[2022-10-20] MEDS: SENNOSIDES-DOCUSATE SODIUM 1 EACH TAB PO SCH (07:49)
[2022-10-20] MEDS: busPIRone HCl 10 MG TAB PO SCH (07:56)
[2022-10-20 07:58] VITALS: BP 117/58; PULSE 91; RESP 16; TEMP 97.9
--- NOTE | 2022-10-20 08:04 | P.DS ---
Providers Date of admission: 10/18/22 16:20 Expected date of discharge: 10/20/22 Attending physician: Rosa Vicente Primary care physician: Stated None Hospital Course: This is a 27-year-old now POD#2 s/p elective repeat section who is doing well and desires discharge home today. The patient is doing well this morning and had no acute events overnight. She has no complaints this morning. She reports minimal lochia, passing flatus, voiding without difficulty, ambulating, and eating/drinking without nausea or vomiting. Infant doing well at bedside, breast-feeding without difficulty. She denies chest pain, shortness of breathing, fevers, or chills overnight. She denies pain or swelling in the legs. Postoperative restrictions are reviewed with the patient including pelvic rest for 6 weeks, no lifting heavier than 15 pounds for 6 weeks. The patient is encouraged to call the office if she experiences any heavy bleeding, foul- smelling discharge, breast complaints, or any if she has any other concerns. She will follow up in the office with Dr. Vicente in 2 weeks for postoperative exam. All questions are answered. Assessment: 27-year-old POD#2 s/p elective repeat section without complications Patient Condition at Discharge: Good Plan - Discharge Summary Discharge Rx Participant: No New Discharge Prescriptions: No Action Vit No.179/Iron/Folic [ Tablet] 1 tab PO DAILY busPIRone HCl [Buspar] 1 tab PO DAILY busPIRone HCl [Buspar] 1 tab PO HS Aspirin [Children's Aspirin] 81 mg PO DAILY Discharge Medication List busPIRone HCl [Buspar] 1 tab PO DAILY 09/21/22 [History] busPIRone HCl [Buspar] 1 tab PO HS 09/21/22 [History] Aspirin [Children's Aspirin] 81 mg PO DAILY 10/16/22 [History] Vit No.179/Iron/Folic [ Tablet] 1 tab PO DAILY 10/16/22 [History] Follow up Appointment(s)/Referral(s): Rosa Vicente DO [Doctor of Osteopathic Medicine] - 2 Weeks Patient Instructions/Handouts: Depression (DC), Bleeding (DC), (DC) Activity/Diet/Wound Care/Special Instructions: No lifting heavier than 15 pounds for 6 weeks. Pelvic rest for 6 weeks. Discharge Disposition: HOME SELF-CARE
== END 2022-10-20 11:30 | disposition home or self-care (01) | DRG 787 ==
LOC: 4FBP 16:20
PROVIDERS: ADMIT Obstetrics & Gynecology Obstetrics; ATTEND Obstetrics & Gynecology Obstetrics
PROC: 10D00Z1 Extraction of Products of Conception, Low, Open Approach (ICD-10-PCS; principal; 2022-10-18 18:30)
DX: O34.211 Maternal care for low transverse scar from previous cesarean delivery (principal); O41.03X0 Oligohydramnios, third trimester, not applicable or unspecified; O77.0 Labor and delivery complicated by meconium in amniotic fluid; O99.824 Streptococcus B carrier state complicating childbirth; Z37.0 Single live birth; Z3A.39 39 weeks gestation of pregnancy; Z79.82 Long term (current) use of aspirin
CPT/HCPCS: 85025; 86850; 86900; 86901; 88307